=== PATIENT | male | born 1995 | race Caucasian/White ===

== ENCOUNTER 2018-07-21 01:23 | Emergency (ER) | payer BC ==
[2018-07-21 01:29] VITALS: BP 136/97
[2018-07-21] MEDS ORDERED: APAP/HYDROCODONE 325/5 TAB PO ONE (01:40)
[2018-07-21] MEDS ORDERED: IBUPROFEN 600 MG TAB PO ONE (01:40)
--- NOTE | 2018-07-21 01:55 | ER Report ---
History and Physical Time Seen By MD: 01:31 Hx. of Stated Complaint: PT PLAYING HOCKEY. HIT ANOTHER PLAYER WITH HIS LEFT RIBS. WHILE BENT OVER HOLDING HIS RIBS, THE PLAYER CAME BACK AND HIT HIM HURTING HIS LEFT COLLAR BONE. NO LOC HPI/ROS CHIEF COMPLAINT: Left rib injury, left clavicle injury HISTORY OF PRESENT ILLNESS: 22-year-old male was injured playing hockey earlier this evening. Patient was knocked into the wall, striking his left ribs in his left shoulder. Patient denies head or neck pain. Patient was advised to follow-up in the ER by medical staff at the arena. Patient denies hemoptysis or shortness of breath. He notes increased pain with deep inspiration. He descr ibes 6/10 left rib pain. He also notes decreased range of motion of his left shoulder. He describes pain across the left clavicle area. REVIEW OF SYSTEMS: Respiratory: No cough, no dyspnea. Cardiovascular: No chest pain, no palpitations. Gastrointestinal: No vomiting, no abdominal pain. Musculoskeletal: No back pain. Allergies: Coded Allergies: No Known Drug Allergies (Unverified , 07/21/18) Home Meds No Active Prescriptions or Reported Meds Reviewed Nurses Notes: Yes Old Medical Records Reviewed: Yes Hx Substance Use Disorder: No Hx Alcohol Use: No Constitutional Vital Sign - Last 24 Hours 07/21/18 01:29 Temp 97.8 Pulse 72 Resp 16 B/P (MAP) 136/97 Pulse Ox 94 O2 Delivery Room Air Physical Exam General Appearance: The patient is alert, has no immediate need for airway protection and no current signs of toxicity. Vital signs stable, afebrile, pulse ox normal. Palpation of the head and neck reveals no tenderness or trauma HEENT: Pupils equal and round no injection. Respiratory: Chest is non tender, lungs are clear to auscultation. There is moderate tenderness to the left ribs. There is no crepitus, ecchymosis or subcutaneous air Cardiac: regular rate and rhythm Gastrointestinal: Abdomen is soft and non tender, no masses, bowel sounds normal. Musculoskeletal: Neck: Neck is supple and non tender. Extremities have full range of motion and are non tender. Palpation of the left shoulder reveals tenderness over the left clavicle. There is decreased range of motion of the left shoulder Skin: No rashes or lesions. DIFFERENTIAL DIAGNOSIS: After history and physical exam differential diagnosis was considered for fractured ribs, pneumothorax, chest wall contusion, fractured clavicle, left shoulder strain, shoulder contusion Medical Decision Making EKG/Imaging Imaging X-ray: Left clavicle, 2 views was obtained. I viewed the images myself on the PACS system. My interpretation of the images is: No fracture no dislocation, no malalignment. The radiologist interpretation had no clinically significant variation from this interpretation. X-ray: Left ribs, 2 views, two-view chest x-ray was obtained. I viewed the images myself on the PACS system. My interpretation of the images is: No fractured ribs, no pneumothorax, no hemothorax. The radiologist interpretation had no clinically significant variation from this interpretation. ED Course/Re-evaluation ED Course Patient was admitted to an examination room. H&P was done. The differential diagnoses was considered. Patient was injured playing hockey. He has left ribs and left clavicle pain. Diagnostic x-rays are ordered. Patient's medicated with Lortab for pain. His x-rays are unremarkable. His results are reviewed with him. He is advised to conservative treatment plan of ibuprofen 600mg 3 times daily with food. Patient's advised to apply packs to the affected area. Decision to Disposition Date: Jul 21, 2018 Decision to Disposition Time: 02:29 Depart Departure Latest Vital Signs Vital Signs Date Time Temp Pulse Resp B/P (MAP) Pulse Ox O2 Delivery O2 Flow Rate FiO2 18 01:29 97.8 72 16 136/97 94 Room Air Impression: Primary Impression: Contusion of rib on left side Additional Impression: Shoulder contusion Condition: Improved Disposition: HOME OR SELF-CARE Referrals: DULCE LUND MD, FARRUKH MD New Scripts No Active Prescriptions or Reported Meds Patient Instructions: Rib Contusion (ED), Shoulder Sprain (ED) Additional Instructions: Take ibuprofen 200 mg 3 tablets 3 times a day with food Apply ice packs to the affected areas for 2 days Follow-up with your primary care if unimproved in 3-5 days. Problem Qualifiers Primary Impression: Contusion of rib on left side Encounter type: initial encounter Qualified Codes: S20.212A - Contusion of left front wall of thorax, initial encounter Additional Impression: Shoulder contusion Encounter type: initial encounter Laterality: left Qualified Codes: S40.012A - Contusion of left shoulder, initial encounter SHANNON HASTINGS DO Jul 21, 2018 01:55
--- NOTE | 2018-07-21 02:26 | RADIOLOGY IMAGING REPORT ---
FACILITY: [facility] [place] PATIENT NAME: Joseph Burrell : 1995 MR: [id number] V: [id number] EXAM DATE: ORDERING PHYSICIAN: SHANNON HASTINGS TECHNOLOGIST: Location: [facility] Patient: Joseph Burrell : 1995 Visit/Account:[id number] Date of Sevice: 07/21/2018 ADDENDUM #1 This examination consists of 2 views of the left ribs. The right ribs were not imaged. There is no apparent acute abnormality of the left ribs. Report Dictated By: Nabil Salinas MD at 07/21/2018 2:25 AM Report E-Signed By: Nabil Salinas MD at 07/21/2018 2:25 AM ORIGINAL REPORT INDICATION: fell playing hockey EXAM DATE: 07/21/2018 1:40 AM COMPARISON: None. FINDINGS: 2 views right ribs. Mineralization is normal. No acute alignment abnormality or fracture. Soft tissue s are unremarkable. IMPRESSION: No acute osseous abnormality of the right ribs. Report Dictated By: Nabil Salinas MD at 07/21/2018 2:21 AM Report E-Signed By: Nabil Salinas MD at 07/21/2018 2:22 AM WSN:[id number]
--- NOTE | 2018-07-21 02:28 | RADIOLOGY IMAGING REPORT ---
FACILITY: [facility] [place] PATIENT NAME: Joseph Burrell : 1995 MR: [id number] V: [id number] EXAM DATE: ORDERING PHYSICIAN: SHANNON HASTINGS TECHNOLOGIST: Location: [facility] Patient: Joseph Burrell : 1995 Visit/Account:[id number] Date of Sevice: 07/21/2018 TWO VIEW CHEST 07/21/2018 1:40 AM. INDICATION: fell playing hockey COMPARISON: None. FINDINGS: Lungs are well-expanded. The lungs are clear. No pneumothorax or pleural effusion. Pulmo nary vasculature is unremarkable. Heart size is normal. No displaced fracture. IMPRESSION: Normal. Report Dictated By: Nabil Salinas MD at 07/21/2018 2:22 AM Report E-Signed By: Nabil Salinas MD at 07/21/2018 2:25 AM WSN:[id number]
--- NOTE | 2018-07-21 02:30 | RADIOLOGY IMAGING REPORT ---
FACILITY: [facility] - [place] PATIENT NAME: Joseph Burrell : 1995 MR: [id number] V: [id number] EXAM DATE: ORDERING PHYSICIAN: SHANNON HASTINGS TECHNOLOGIST: [place] [facility] [place]rell : 1995 Visit/Account:[id number] Date of Sevice: 07/21/2018 INDICATION: fell playing hockey EXAM DATE: 07/21/2018 1:40 AM COMPARISON: None. FINDINGS: 2 views left clavicle. Mineralization is normal. No acute alignment abnormality or fracture. Soft tis sues are unremarkable. IMPRESSION: Normal left clavicle. Report Dictated By: Nabil Salinas MD at 07/21/2018 2:26 AM Report E-Signed By: aNbil Salinas MD at 07/21/2018 2:27 AM WSN:[id number]
== END 2018-07-21 02:45 | disposition home or self-care (01) ==
LOC: ER 02:45
DX: S20.212A Contusion of left front wall of thorax, initial encounter (principal); S40.012A Contusion of left shoulder, initial encounter; W50.0XXA Accidental hit or strike by another person, initial encounter; Y93.22 Activity, ice hockey
CPT/HCPCS: 71046; 71100; 99284